=== PATIENT | male | born 1980 | race Caucasian/White ===

== ENCOUNTER 2017-06-21 08:21 | Emergency (ER) | payer BC ==
[2017-06-21 08:52] VITALS: BP 173/97
--- NOTE | 2017-06-21 10:41 | EDM.PDOC ---
ED HPI GENERAL MEDICAL PROBLEM - General Chief Complaint: Lower Extremity Injury/Pain Stated Complaint: L FOOT PAIN Time Seen by Provider: 06/21/17 08:49 Source of Information: Reports: Patient, RN Notes Reviewed - History of Present Illness INITIAL COMMENTS - FREE TEXT/NARRATIVE: 37 year old male with L foot pain, this started about 2 days ago, no known injury. increasing pain, redness, swelling lateral aspect of foot. Mild to moderate pain at rest, severe pain this morning with wt bearing. Went to [facility], picked up some crutches, no fever or chills. Not otherwise ill. Left Feet Pain Score (Numeric/FACES): 10 - Related Data Allergies Allergy/AdvReac Type Severity Reaction Status Date / Time ibuprofen Allergy Other Verified 06/21/17 08:52 Home Meds: Home Meds Acetaminophen/HYDROcodone [Ray 325-5 MG] 1 tab PO Q6H PRN #10 tablet 06/21/17 [Rx] Doxycycline [Vibramycin] 100 mg PO BID #20 tab 06/21/17 [Rx] Naproxen [Naprosyn] 500 mg PO Q12HR #14 tab 06/21/17 [Rx] Past Medical History - Past Health History Medical/Surgical History: Denies Medical/Surgical History Cardiovascular History: Reports: Hypertension - Past Surgical History HEENT Surgical History: Reports: Adenoidectomy, Myringotomy w Tube(s), Tonsillectomy Social & Family History - Tobacco Use Smoking Status *Q: Former Smoker Used Tobacco, but Quit: Yes Month/Year Tobacco Last Used: 10 Second Hand Smoke Exposure: No - Alcohol Use Days Per Week of Alcohol Use: 0 - Recreational Drug Use Recreational Drug Use: No Review of Systems - Review of Systems Review Of Systems: See Below Constitutional: Denies: Chills, Fever Mouth/Throat: Reports: No Symptoms Respiratory: Denies: Shortness of Breath, Pleuritic Chest Pain Cardiovascular: Denies: Chest Pain GI/Abdominal: Denies: Nausea, Vomiting Musculoskeletal: Denies: Joint Pain (L foot) Skin: Reports: Erythema (L lateral distal foot) Neurological: Reports: Difficulty Walking. Denies: Numbness, Tingling ED EXAM, GENERAL - Physical Exam Exam: See Below General Appearance: Alert, No Apparent Distress Eye Exam: Bilateral Eye: PERRL Head: Atraumatic Neck: Supple, Full Range of Motion Respiratory/Chest: No Respiratory Distress, Lungs Clear, Normal Breath Sounds Cardiovascular: Regular Rate, Rhythm Extremities: Redness (there is erythema of the L lateral foot, mild swelling, mild to moderate tenderness, ankle without warmth swelling or tenderness, medial foot without warmth, swelling or tenderness) Neurological: Alert, Oriented, No Motor/Sensory Deficits Course - Vital Signs Last Recorded V/S: Last Vital Signs Temp 97.4 F 06/21/17 08:45 Pulse 100 06/21/17 08:45 Resp 16 06/21/17 08:45 BP 173/97 H 06/21/17 08:45 Pulse Ox 97 06/21/17 08:45 - Orders/Labs/Meds Orders: Active Orders 24 hr Category Date Time Status Foot Comp Min 3V Lt [CR] Stat Exams 06/21/17 08:59 Taken - Re-Assessments/Exams Free Text/Narrative Re-Assessment/Exam: 06/21/17 12:06 X rays of foot are neg for rx or other apparent abnormality Departure - Departure Time of Disposition: 10:35 Disposition: Home, Self-Care 01 Condition: Fair Clinical Impression: Cellulitis Qualifiers: Site of cellulitis: extremity Site of cellulitis of extremity: lower extremity Laterality: left Qualified Code(s): L03.116 - Cellulitis of left lower limb - Discharge Information Prescriptions: Naproxen [Naprosyn] 500 mg PO Q12HR #14 tab Acetaminophen/HYDROcodone [Ray 325-5 MG] 1 tab PO Q6H PRN #10 tablet PRN Reason: Pain Doxycycline [Vibramycin] 100 mg PO BID #20 tab Instructions: Cellulitis, Adult, [id number] Referrals: Raymond James Jr, MD [Primary Care Provider] - Forms: ED Department Discharge Additional Instructions: rest and elevate foot as much as possible, use crutches until pain resolving, doxycycline 100 mg twice daily, naprosyn twice daily for pain and inflamation, tylenol in addition for mild to moderate discomfort or hydrocodone if needed for severe pain, do not drive or work when taking hydrocodone, do not take tylenol and hdrocodone at the same time. Follow up clinic if not much better within 3 to 4 days as expected. - My Orders Last 24 Hours: My Active Orders 06/21/17 08:59 Foot Comp Min 3V Lt [CR] Stat - Assessment/Plan Last 24 Hours: My Active Orders 06/21/17 08:59 Foot Comp Min 3V Lt [CR] Stat
--- NOTE | 2017-06-22 16:53 | CR ---
Left foot: Four views of the left foot were obtained. Comparison: No previous study. Soft tissue swelling is identified. Small plantar spur is seen. Minimal degenerative change is noted within the first MTP joint. No acute fracture, dislocation or other bony abnormality is seen. Impression: 1. Soft tissue swelling and other incidental findings. No acute bony abnormality is identified on left foot exam. Diagnostic code #2
== END 2017-06-21 10:59 | disposition home or self-care (01) ==
LOC: JD.ED 08:21
DX: L03.116 Cellulitis of left lower limb (principal); I10 Essential (primary) hypertension; Z88.6 Allergy status to analgesic agent; Z87.891 Personal history of nicotine dependence
CPT/HCPCS: 73630-26-LT; 73630-LT; 99283

== ENCOUNTER 2024-11-01 13:00 | Emergency (ER) | payer BC, OTHER ==
[2024-11-01] MEDS: Ondansetron 4 MG/2 ML SDV IVPUSH ONE (13:29)
[2024-11-01 13:31] LABS: BASOPHILS ABSOLUTE AUTO 0.1 K/mm3 (0.0-0.2); BASOPHILS PERCENT AUTO 0.4 % (0.0-1.0); EOSINOPHILS ABSOLUTE AUTO 0.4 K/mm3 (0.0-0.4); EOSINOPHILS PERCENT AUTO 3.2 % (0.0-6.0); IMMATURE GRAN ABSOLUTE AUTO 0.07 K/mm3 (0.00-0.05); IMMATURE GRAN PERCENT AUTO 0.6 % (0.0-0.4); LYMPHOCYTES ABSOLUTE AUTO 4.7 K/mm3 (1.0-4.8); LYMPHOCYTES PERCENT AUTO 37.3 % (24.0-44.0); MEAN PLATELET VOLUME 9.5 fl (9.4-12.4); MONOCYTES ABSOLUTE AUTO 0.8 K/mm3 (0.0-0.8); MONOCYTES PERCENT AUTO 6.6 % (0.0-8.0); NEUTROPHILS ABSOLUTE AUTO 6.5 K/mm3 (1.8-7.7); NEUTROPHILS PERCENT AUTO 51.9 % (41.0-71.0); NRBC ABSOLUTE 0.00 (0.00-0.02); NRBC PERCENT 0.0 % (0.0-0.2); PLATELET COUNT,PLT 352 K/mm3 (150-400); RED BLOOD CELL COUNT 6.05 M/mm3 (4.52-5.90); WHITE BLOOD CELL COUNT,WBC 12.56 K/mm3 (3.9-11.3)
[2024-11-01] MEDS: Sodium Chloride 0.9% 10 ML Syringe FLUSH PRN (13:42)
[2024-11-01] MEDS: Iopamidol 612 MG/ML 100 ML Bottle IVPUSH ONE (13:42)
[2024-11-01 13:46] LABS: INR 1.03
[2024-11-01 13:52] LABS: A/G RATIO 1.4 (1-2); ALANINE AMINOTRANSFERASE,ALT 36.0 U/L (16-63); ASPARTATE AMNIOTRANSFERASE,AST 20.0 U/L (15-37); BILIRUBIN TOTAL 1.1 mg/dL (0.2-1.0); BLOOD UREA NITROGEN,BUN 13.0 mg/dL (7-18); CARBON DIOXIDE,CO2 21.0 mEq/L (21-32); CHLORIDE,CL 102.0 mEq/L (98-107); CREATINE KINASE,CK 86.0 U/L (39-308); CREATININE 0.8 mg/dL (0.7-1.3); EST CRCL DRUG DOSING (CG) 120.4 mL/min; ESTIMATED GFR 111.0 mL/min (>60); ETHANOL BLOOD MEDICAL 0.0 gm% (0.00); GLUCOSE RANDOM 163.0 mg/dL (70-99); POTASSIUM,K 3.0 mEq/L (3.5-5.1); PROTEIN TOTAL,TP 7.4 g/dl (6.4-8.2); SODIUM,NA 138.0 mEq/L (136-145)
[2024-11-01 15:55] VITALS: BP 131/78; PULSE 88
== END 2024-11-01 15:55 | disposition home or self-care (01) ==
LOC: JD.ED 13:00
DX: K85.90 Acute pancreatitis without necrosis or infection, unspecified (principal); E87.6 Hypokalemia; E86.0 Dehydration; I10 Essential (primary) hypertension; Z88.6 Allergy status to analgesic agent; Z79.899 Other long term (current) drug therapy
CPT/HCPCS: 36415; 74177; 80053; 80307; 82550; 83605; 83690; 83735; 85025; 85610; 96361; 96365; 96375; 99284; J1171; J2405; J3480; J7030; Q9967